=== PATIENT | female | born 1995 | race Caucasian/White ===

== ENCOUNTER 2017-06-17 17:21 | Emergency (ER) | payer SELFPAY ==
[2017-06-17 20:39] VITALS: BP 106/55
[2017-06-17 20:57] LABS: Basophils % (Auto) 0.2 % (0.0-1.8); Eosinophils % (Auto) 0.1 % (0.0-4.3); Hemoglobin 14.6 gm/dl (10.1-14.3); Lymphocytes # (Auto) 3.8 K/mm3 (1.2-5.4); Lymphocytes % (Auto) 25.8 % (13.4-35.0); Mean Corpuscular HGB Conc 33 % (30-34); Mean Corpuscular Hemoglobin 29 pg (28-32); Mean Corpuscular Volume 87 fl (79-97); Monocytes # (Auto) 0.6 K/mm3 (0.0-0.8); Monocytes % (Auto) 3.9 % (0.0-7.3); Platelet Count 311 K/mm3 (140-440); Red Blood Count 5.04 M/mm3 (3.65-5.03); Red Cell Distribution Width 12.3 % (13.2-15.2)
[2017-06-17 21:08] LABS: BUN/Creatinine Ratio 20; Blood Urea Nitrogen 12 mg/dL (7-17); Calcium 8.8 mg/dL (8.4-10.2); Hemolysis Index 1
[2017-06-17 23:09] LABS: Bilirubin,Urine NEG (Negative); Blood,Urine NEG (Negative); Color,Urine Yellow (Yellow); Mucus,Urine 2+ /HPF; Protein,Urine <15 mg/dL mg/dL (Negative); Urobilinogen,Urine < 2.0 mg/dL (<2.0)
[2017-06-17 23:13] LABS: HCG Qualitative,Urine Negative (Negative)
== END 2017-06-17 23:40 | disposition left against medical advice (07) ==
LOC: ED 17:21
DX: R10.9 Unspecified abdominal pain (principal); Z53.21 Procedure and treatment not carried out due to patient leaving prior to being seen by health care provider
CPT/HCPCS: 36415; 80048; 81001; 81025; 85025